=== PATIENT | male | born 1970 | race Caucasian/White ===

== ENCOUNTER 2022-01-20 02:19 | Emergency (ER) | payer BC, OTHER ==
[2022-01-20] MEDS ORDERED: Boostrix 0.5 ML (Tdap) VIAL ONE (04:03)
[2022-01-20] MEDS ORDERED: Ondansetron ODT 4 MG TAB ONE (04:03)
[2022-01-20] MEDS ORDERED: Acetaminophen 500 MG TAB ONE (05:03)
== END 2022-01-20 06:37 | disposition home or self-care (01) ==
LOC: ERS 02:19
DX: S06.6X9A Traumatic subarachnoid hemorrhage with loss of consciousness of unspecified duration, initial encounter (principal); F17.210 Nicotine dependence, cigarettes, uncomplicated; W19.XXXA Unspecified fall, initial encounter
CPT/HCPCS: 70450; 72125; 90471; 90715; Q0162

== ENCOUNTER 2022-01-20 19:40 | Emergency (ER) | payer OTHER ==
[2022-01-20] MEDS ORDERED: Ondansetron ODT 8 MG TAB ONE (20:42)
== END 2022-01-21 00:07 | disposition home or self-care (01) ==
LOC: ERS 19:40
DX: S06.6X9A Traumatic subarachnoid hemorrhage with loss of consciousness of unspecified duration, initial encounter (principal); Z87.891 Personal history of nicotine dependence; Z79.899 Other long term (current) drug therapy; W10.9XXA Fall (on) (from) unspecified stairs and steps, initial encounter
CPT/HCPCS: 70450; Q0162